=== PATIENT | female | born 1995 | race Caucasian/White ===

== ENCOUNTER 2016-12-09 21:09 | Emergency (ER) | payer BC ==
--- NOTE | 2016-12-09 21:25 | UCPHY ---
H & P Patient Type: Established HPI/ROS: 21 year old female presents complaining of likely bacterial vaginosis, she states she has had a little bit of crampy pelvic pain as well as some off-white discharge Review of systems As per HPI General no fever no chills no weakness HEENT no eye pain no eye discharge. No eye redness, no sore throat Respiratory no cough, no shortness of breath Cardiac no chest pain, no peripheral edema GI no abdominal pain, no diarrhea, no constipation, no nausea, no vomiting no flank pain, no hematuria, no dysuria positive vaginal discharge Musculoskeletal no myalgias, no joint pain Heme no easy bruising, no easy bleeding Endo no polyuria, no polydipsia Skin no rashes, no pruritus Neuro no syncope, no dizziness, no headaches Psych is no suicidal ideation, no homicidal ideation Past Medical/Surgical History: Depression, Prior history of bacterial vaginosis Social History: Denies alcohol or drug use Smoking Status: Never smoked Physical Exam: 21 -year-old female alert and oriented no acute distress nontoxic appearance Alert and oriented in no acute distress nontoxic appearance, afebrile Atraumatic normocephalic Neck no JVD Lungs clear to auscultation, no respiratory distress Heart regular rate and rhythm Extremities no cyanosis clubbing edema External genitalia normal, no lesions Speculum exam os visualized, small amount of off-white thin discharge discharge , no bleeding Bimanual no cervical motion tenderness, no adnexal tenderness Constitutional: Initial Vital Signs Temperature (C) 37.3 C 12/09/16 21:24 Heart Rate 90 12/09/16 21:24 Respiratory Rate 16 12/09/16 21:24 Blood Pressure 125/84 H 12/09/16 21:24 O2 Sat (%) 96 12/09/16 21:24 O2 Delivery Mode Room Air Allergies/Adverse Reactions: No Known Allergies Allergy (Unverified 03/06/15 14:55) Home Medications: Medication Instructions Recorded Concerta 03/06/15 Lexapro 03/06/15 Synthroid 03/06/15 Wellbutrin 100mg (RX) 03/06/15 Metronidazole 500 mg PO TID #21 tablet 12/09/16 Medical Decision Making ED Course/Re-evaluation: Patient seen and evaluated for vaginal discharge and some pelvic discomfort Wet prep sent and found to have clue cells Differential diagnosis considered Urinary tract infection, bacterial vaginosis, gonorrhea cough, chlamydia Impression Bacterial vaginosis Plan Metronidazole three times daily x7 days Follow-up with a stock layer as needed - Data Points Laboratory Results: 12/09/16 12/09/16 12/09/16 22:00 22:00 21:33 Urine Test NEGATIVE Trichomonas (Wet Prep) CLUE CELLS PRESENT H Johana species DNA Pending C.trachomatis RNA (TMA) Pending Gardnerella DNA Probe Pending N.gonorrhoeae RNA (TMA) Pending Trichomonas DNA Probe Pending Medications Given: Discontinued Medications Metronidazole (Flagyl) 500 mg PO EDNOW ONE PRN Reason: Protocol Stop: 12/09/16 22:29 Last Admin: 12/09/16 22:36 Dose: 500 mg Departure - Departure Disposition: Home, Routine, Self-Care Clinical Impression: Bacterial vaginosis Condition: Good Instructions: Bacterial Vaginosis (ED) Referrals: NONE *PRIMARY CARE P,. [Primary Care Provider] - As per Instructions Prescriptions: Metronidazole 500 mg PO TID #21 tablet - PQRS PQRS Measurement: na
[2016-12-09 21:27] VITALS: BP 125/84; PULSE 90; RESP 16; TEMP 99.1; O2SAT 96
[2016-12-09] MEDS ORDERED: metroNIDAZOLE 500 MG TAB PO ONE (22:28)
[2016-12-12 12:19] LABS: CHLAMYDIA AMPLIFICATION GENPRB NEGATIVE (NEGATIVE)
== END 2016-12-09 22:41 | disposition home or self-care (01) ==
LOC: CED 21:09
DX: N76.0 Acute vaginitis (principal)
CPT/HCPCS: 81025-PO; 87210-PO; 99214-PO; G0463-PO

== ENCOUNTER 2017-12-09 19:32 | Emergency (ER) | payer BC ==
[2017-12-09 19:45] VITALS: RESP 18; O2SAT 96
[2017-12-09] MEDS ORDERED: DEXAMETHASONE 4 MG TAB PO ONE (19:54)
--- NOTE | 2017-12-09 20:01 | EDPHY ---
H & P Time Seen by Provider: 12/09/17 19:44 HPI/ROS: CHIEF COMPLAINT: I think I have tonsillitis HISTORY OF PRESENT ILLNESS: This is a 22-year-old female who finished a course of clindamycin for tonsillitis approximately 6 days ago. At that time she had been diagnosed at [facility] as having tonsillitis and had a course of clindamycin. Patient reports her symptoms resolved with clindamycin. However, last night she developed a sore throat again and noticed discharge present on both tonsils. She has been running a fever. Patient has use Tylenol or ibuprofen for the fever and throat discomfort. No cough. No excessive fatigue. No difficulty swallowing. No vomiting or diarrhea. No known ill contacts. REVIEW OF SYSTEMS: Aside from elements discussed in the HPI, a comprehensive 10-point review of systems was reviewed and is negative. PAST MEDICAL HISTORY: Depression. Takes Lexapro, Wellbutrin, and Zoloft and Concerta. SOCIAL HISTORY: Reports no new sexual partners. Does report oral intercourse. VITAL SIGNS: see nurse's notes. Low-grade fever here, heart rate 103. GENERAL: Well-developed, well-nourished, in no acute distress. HEENT: Atraumatic Eyes: PERRL, EOMI, no conjunctival injection. Ears: TM clear bilaterally. Nose: No discharge. Mouth: moist mucous membranes. Pharynx: Bilateral tonsillar enlargement, erythema, and discharge is present. No abscess. Uvula is midline. NECK: Supple, no adenopathy, no meningismus, no tenderness. Negative Kernig's and Brudzinski's. LUNGS: Clear to auscultation bilaterally, no wheezes, rhonchi or rales. CARDIAC: Slightly tachycardic. No rubs murmurs or gallops. ABDOMEN: Soft, nontender, bowel sounds normal. BACK: No CVA tenderness. EXTREMITIES: Normal, no edema, FROM. NEURO: Alert and oriented, grossly nonfocal. SKIN: Warm and dry, no rash. PSYCHIATRIC: Normal mentation, no agitation. Smoking Status: Never smoked Constitutional: Initial Vital Signs Temperature (C) 37.9 C 12/09/17 19:43 Heart Rate 103 H 12/09/17 19:43 Respiratory Rate 18 12/09/17 19:43 Blood Pressure 124/85 H 12/09/17 19:43 O2 Sat (%) 96 12/09/17 19:43 O2 Delivery Mode Room Air Allergies/Adverse Reactions: No Known Allergies Allergy (Verified 12/09/17 19:45) Home Medications: Medication Instructions Recorded Concerta 03/06/15 Lexapro 03/06/15 Synthroid 03/06/15 Wellbutrin 100mg (RX) 03/06/15 Amoxicillin/Clavulanate Pot 875 mg PO BID #14 tab 12/09/17 [Augmentin 875 MG TAB (*)] Dexamethasone [Decadron 4 MG (*)] 4 - 8 mg PO DAILY 3 Days tab 12/09/17 Medical Decision Making ED Course/Re-evaluation: Strep screen was sent. Gonorrhea culture of the oropharynx was obtained. Monospot was drawn. Patient received 10 mg of Decadron p.o. Strep screen was negative. Mouth spot was negative. Patient was placed on Augmentin for significant tonsillitis. We discussed the fact that throat culture results were still pending at this time. Please see discharge instructions. Differential Diagnosis: Differential diagnosis for the patient's sore throat was considered including but not limited to viral pharyngitis, bacterial pharyngitis, tonsillitis, tonsillar abscess, peritonsillar abscess, foreign body, epiglottitis, bacterial tracheitis. - Data Points Laboratory Results: 12/09/17 12/09/17 12/09/17 Unknown 20:01 19:40 Monoscreen NEGATIVE (NEGATIVE) Group A Strep Screen NEGATIVE (NEGATIVE) Group A Strep DNA Pending Medications Given: Discontinued Medications Amoxicillin/Clavulanate Potassium (Augmentin 875mg) 875 mg PO EDNOW ONE PRN Reason: Protocol Stop: 12/09/17 20:35 Last Admin: 12/09/17 20:43 Dose: 875 mg Dexamethasone (Decadron) 8 mg PO EDNOW ONE Stop: 12/09/17 19:55 Last Admin: 12/09/17 20:02 Dose: 8 mg Departure - Departure Disposition: Home, Routine, Self-Care Clinical Impression: Tonsillitis, Fever Condition: Good Instructions: Tonsillitis (ED) Additional Instructions: Please take antibiotic as directed. Watch for the development of diarrhea. I recommend taking probiotics with the clindamycin to prevent the development of a severe type of diarrhea Please follow up with her primary care physician early next week to ensure you are improving. A culture of your throat has been ordered. These results will be available in 48 hr. If there is a specific organism causing the tonsillitis, you may need to have your antibiotics changed. Please take the Decadron as directed. Salt water gargles, drinking cold water, throat lozangers may all help the sore throat. Continue using Tylenol and ibuprofen as needed for fevers and throat pain. Referrals: Nneka Bernard MD [Primary Care Provider] - As per Instructions Prescriptions: Amoxicillin/Clavulanate Pot [Augmentin 875 MG TAB (*)] 875 mg PO BID #14 tab Dexamethasone [Decadron 4 MG (*)] 4 - 8 mg PO DAILY 3 Days tab
[2017-12-09] MEDS ORDERED: CLINDAMYCIN 150 MG CAP PO ONE (20:29)
[2017-12-09] MEDS ORDERED: AMOXICILLIN/CLAVULANATE POT 875/125 MG TAB PO ONE (20:34)
[2017-12-09 20:56] VITALS: BP 119/74; PULSE 94; TEMP 98.2
== END 2017-12-09 20:54 | disposition home or self-care (01) ==
LOC: CED 19:32
DX: J03.90 Acute tonsillitis, unspecified (principal)
CPT/HCPCS: 86308-PO; 87880-PO

== ENCOUNTER 2019-02-13 21:39 | Emergency (ER) | payer BC ==
[2019-02-13] MEDS ORDERED: IPRATROPIUM/ALBUTEROL 3 ML DEYVIAL IH ONE (21:48)
[2019-02-13] MEDS ORDERED: predniSONE 20 MG TAB PO ONE (21:48)
--- NOTE | 2019-02-13 21:50 | EDPHY ---
H & P Time Seen by Provider: 02/13/19 21:48 HPI/ROS: CHIEF COMPLAINT: Asthma exacerbation HISTORY OF PRESENT ILLNESS: The patient is a 23-year-old female with a history of mild asthma. She has not required her inhaler for a long time. Few days ago she began having cold symptoms including a sore throat and runny nose. She presented to her primary care doctor who gave her nasal spray in her symptoms seem to improve. Today however she developed shortness of breath and wheezing. She used her friend's inhaler twice today with moderate improvement. She does not have a fever. No chest pain. No choking. Severity: Moderate Modifying factors: Improved with albuterol REVIEW OF SYSTEMS: Constitutional: denies: chills, fever, recent illness, recent injury EENTM: denies: blurred vision, double vision, nose congestion Respiratory: See HPI Cardiac: denies: chest pain, irregular heart rate, lightheadedness, palpitations Gastrointestinal/Abdominal: denies: abdominal pain, diarrhea, nausea, vomiting, blood streaked stools Genitourinary: denies: dysuria, frequency, hematuria, pain Musculoskeletal: denies: joint pain, muscle pain Skin: denies: lesions, rash, jaundice, bruising Neurological: denies: headache, numbness, paresthesia, tingling, dizziness, weakness Hematologic/Lymphatic: denies: blood clots, easy bleeding, easy bruising Immunologic/allergic: denies: HIV/AIDS, transplant 10 systems reviewed and negative except as noted EXAM: GENERAL: Moderate distress HEAD: Atraumatic, normocephalic. EYES: Pupils equal round and reactive to light, extraocular movements intact, sclera anicteric, conjunctiva are normal. ENT: TMs normal, nares patent, oropharynx clear without exudates. Moist mucous membranes. NECK: Normal range of motion, supple without lymphadenopathy or JVD. LUNGS: Bilateral expiratory wheezing HEART: Regular rate and rhythm without murmurs, rubs or gallops. ABDOMEN: Soft, nontender, normoactive bowel sounds. No guarding, no rebound. No masses appreciated. BACK: No CVA tenderness, no spinal tenderness, step-offs or deformities EXTREMITIES: Normal range of motion, no pitting or edema. No clubbing or cyanosis. NEUROLOGICAL: Cranial nerves II through XII grossly intact. Normal speech, normal gait. 5/5 strength, normal movement in all extremities, normal sensation , normal reflexes PSYCH: Normal mood, normal affect. SKIN: Warm, dry, normal turgor, no visible rashes or lesions. Source: Patient Exam Limitations: No limitations - Medical/Surgical History Hx Asthma: No Hx Chronic Respiratory Disease: No Hx Diabetes: No Hx Cardiac Disease: No Hx Renal Disease: No Hx Cirrhosis: No Hx Alcoholism: No Hx HIV/AIDS: No Hx Splenectomy or Spleen Trauma: No Other PMH: depression/anxiety, asthma - Family History Significant Family History: No pertinent family hx - Social History Smoking Status: Never smoked Alcohol Use: Sober Drug Use: None Constitutional: Initial Vital Signs Temperature (C) 36.9 C 02/13/19 21:51 Heart Rate 100 02/13/19 21:51 Respiratory Rate 20 02/13/19 21:51 Blood Pressure 129/94 H 02/13/19 21:51 O2 Sat (%) 89 L 02/13/19 21:51 O2 Delivery Mode Room Air Allergies/Adverse Reactions: No Known Allergies Allergy (Verified 02/13/19 21:46) Home Medications: Medication Instructions Recorded Concerta 03/06/15 Lexapro 03/06/15 Wellbutrin 100mg (RX) 03/06/15 Albuterol 5 mg/ml INH [Proventil] 02/13/19 Albuterol [Proventil Inhaler] 1 - 2 puffs IH Q4H #1 mdi 02/13/19 predniSONE 60 mg PO DAILY #15 tab 02/13/19 Medical Decision Making ED Course/Re-evaluation: 10:00 p.m. After DuoNeb patient's wheezing is completely resolved. She is feeling much better. Saturating 99% on room air. She declines x-ray. 11:00 p.m. the patient remains asymptomatic. No wheezing on exam. We discussed using steroids and albuterol at home. She is eager to go home and declines further observation. Differential Diagnosis: Partial list of the Differential diagnosis considered include but were not limited to; asthma exacerbation, bronchitis and although unlikely based on the history and physical exam, I also considered pneumonia, pneumothorax, PE. I discussed these differential diagnoses and the plan with the patient as well as the usual and expected course. The patient understands that the diagnosis is provisional and that in medicine we are not always correct and that further workup is often warranted. Usual and customary warnings were given. All of the patient's questions were answered. The patient was instructed to return to the emergency department should the symptoms at all worsen or return, otherwise to followup with the physician as we discussed. - Data Points Medications Given: Discontinued Medications Albuterol/Ipratropium (Duoneb) 3 ml IH EDNOW ONE Stop: 02/13/19 21:49 Last Admin: 02/13/19 21:57 Dose: 3 ml Prednisone (Prednisone) 60 mg PO EDNOW ONE Stop: 02/13/19 21:49 Last Admin: 02/13/19 21:58 Dose: 60 mg Departure - Departure Disposition: Home, Routine, Self-Care Clinical Impression: Exacerbation of asthma Qualifiers: Asthma severity: mild Asthma persistence: intermittent Qualified Code(s): J45.21 - Mild intermittent asthma with (acute) exacerbation Condition: Fair Instructions: Asthma (ED) Referrals: Nneka Bernard MD [Primary Care Provider] - As per Instructions Stand Alone Forms: Work Excuse Prescriptions: Albuterol [Proventil Inhaler] 1 - 2 puffs IH Q4H #1 mdi predniSONE 60 mg PO DAILY #15 tab
[2019-02-13 22:59] VITALS: BP 113/70
== END 2019-02-13 22:59 | disposition home or self-care (01) ==
LOC: CED 21:39 → SUPCPDRO 21:39 → CED 22:59
DX: J45.21 Mild intermittent asthma with (acute) exacerbation (principal)
CPT/HCPCS: 99284-ER; J7512